=== PATIENT | female | born 2000 | race Caucasian/White ===

== ENCOUNTER 2023-06-17 17:27 | Emergency (ER) | payer OTHER, SELFPAY ==
[2023-06-17 17:44] VITALS: BP 122/72; PULSE 63; RESP 16; TEMP 36.6; O2SAT 100; BMI 27.5
--- NOTE | 2023-06-17 17:47 | DI.US.S_ITS ---
PROCEDURE: US OB <= 14 WEEKS FETUS INDICATIONS: BLEEDING, CRAMPING OUTSIDE/PRIOR DATING DATA: Last menstrual period (LMP): 03/12/2023. LMP-based estimated date of delivery (CAROLYN): 12/17/2023. TECHNIQUE: Real-time scanning was performed of the fetus and maternal pelvic organs, with image documentation. Endovaginal scanning was also performed to better visualize the fetus and maternal ovaries. COMPARISON: None. FINDINGS: No pole is identified. An intrauterine gestational sac is seen measuring 1 cm corresponding to a possible ultrasound age of 5 weeks and 5 days. A yolk sac is present. Adnexal structures within normal limits. IMPRESSION: of unknown viability. Intrauterine gestational sac with a yolk sac is present, without pole. Recommend follow-up imaging in 14 days or sooner and clinical/laboratory follow-up. Dictated by: Dayron Gallardo M.D. on 06/17/2023 at 19:28 Approved by: Dayron Gallardo M.D. on 06/17/2023 at 19:30
[2023-06-17 18:08] LABS: Add Manual Diff / Slide Review NO; Basophils Absolute Auto 0 /uL (0-100); Basophils Percent Auto 0.3 % (0-2); Eosinophils Absolute Auto 100 /uL (0-450); Eosinophils Percent Auto 1.6 % (2-4); Hematocrit 39.8 % (36-46); Hemoglobin 13.5 g/dL (12.0-16.0); Lymphocytes Absolute Auto 1700 /uL (1100-4500); Lymphocytes Percent Auto 21.3 % (25-40); Mean Corpuscular HGB Conc 33.8 % (30-36); Mean Corpuscular Hemoglobin 29.1 PG (26-34); Mean Corpuscular Volume 86.2 fL (80-100); Monocytes Absolute Auto 800 /uL (0-900); Monocytes Percent Auto 10.3 % (3-14); Neutrophils Absolute Auto 5300 /uL (1500-7000); Neutrophils Percent Auto 66.5 % (50-75); Platelet Count 297 X10^3/uL (150-400); Red Blood Cell Count 4.62 X10^6/uL (4.0-5.2); Red Cell Distribution Width 12.7 % (11.6-14.8); White Blood Cell Count 7.9 X10^3/uL (4.5-11.0)
[2023-06-17 18:19] LABS: Alanine Aminotransferase 20 IU/L (<35); Albumin 4.2 g/dL (3.5-5.0); Albumin Globulin Ratio 1.4 (1.0-2.8); Alkaline Phosphatase 43 U/L (38-126); Aspartate Aminotransferase 21 IU/L (14-36); BUN Creatinine Ratio 16.7 (6-22); Blood Urea Nitrogen 13 mg/dL (7-17); Calcium 8.6 mg/dL (8.4-10.2); Carbon Dioxide 27 mmol/L (22-32); Chloride 110 mmol/L (98-107); Estimated Glomerular Filt Rate > 60 mL/min (>60); Globulin 2.9 g/dL (1.7-4.1); Glucose 87 mg/dL (70-100); HEMOLYSIS < 15 (0-50); Potassium 3.8 mmol/L (3.4-5.1); Sodium 141 mmol/L (137-145); Total Protein 7.1 g/dL (6.3-8.2)
[2023-06-17 18:36] LABS: HCG Quantitative /Beta subunit 1710.5 mIU/mL
[2023-06-17 20:09] VITALS: PULSE 62; O2SAT 100
[2023-06-17 20:30] VITALS: PULSE 56; RESP 18; O2SAT 98
[2023-06-17 21:00] VITALS: PULSE 56; O2SAT 100
--- NOTE | 2023-06-17 21:25 | ED_ITS ---
HPI - General Chief complaint: OB/Uterine Contractions Stated complaint: prenant 13 wks bleeding and cramping Time Seen by Provider: 06/17/23 18:40 Source: patient Mode of arrival: Ambulatory History of Present Illness HPI Narrative: at approximately 13 weeks gestational age based on last menstrual. Presents for 1 day of lower abdominal bleeding and cramping. Patient states that she only recently took a positive test. When she tried to call OBGYN they did not have any available appointments and referred to the emergency department. She does not know her blood type. Related Data Allergies Allergy/AdvReac Type Severity Reaction Status Date / Time No Known Drug Allergies Allergy Verified 06/17/23 17:47 Review of Systems Review of Systems Narrative: Negative except as noted above Exam Initial Vital Signs Initial Vital Signs: Vital Signs Temperature 97.8 F 06/17/23 17:44 Pulse Rate 63 06/17/23 17:44 Respiratory Rate 16 06/17/23 17:44 Blood Pressure 122/72 06/17/23 17:44 Pulse Oximetry 100 06/17/23 17:44 Oxygen Delivery Method Room Air 06/17/23 17:44 Const: Awake, alert, no acute distress, nontoxic appearing Cardiac: regular rate, regular rhythm RESP: unlabored, clear bilaterally, no wheezing GI: Atraumatic, soft, nontender, nondistended, no rebound, no guarding MSK: Atraumatic, full range of motion, pulses equal Skin: Warm, Dry, intact, no rashes Neuro: AO x3, CN II-XII grossly intact, moves all extremities Course Orders Ordered: ED Orders 06/17/23 17:47 OB <= 14 weeks fetus Stat 06/17/23 18:00 Complete Blood Count AUTO DIFF Stat Comprehensive Metabolic Panel Stat HCG Quantitative /Beta subunit Stat Type and Screen Stat Vital Signs Vital signs: Vital Signs - 8 hr 06/17/23 20:30 06/17/23 21:00 Pulse Rate 56 L 56 L Respiratory Rate 18 Pulse Oximetry 98 100 MDM - OB/Uterine Contractions Differential Diagnosis Differential diagnosis: Likely pre-eclampsia, eclampsia and other Lab Data 06/17/23 18:00 06/17/23 18:00 Labs: Lab Results 06/17/23 Range/Units 18:00 WBC 7.9 (4.5-11.0) X10^3/uL RBC 4.62 (4.0-5.2) X10^6/uL Hgb 13.5 (12.0-16.0) g/dL Hct 39.8 (36-46) % MCV 86.2 (80-100) fL MCH 29.1 (26-34) PG MCHC 33.8 (30-36) % RDW 12.7 (11.6-14.8) % Plt Count 297 (150-400) X10^3/uL Neut % (Auto) 66.5 (50-75) % Lymph % (Auto) 21.3 L (25-40) % [place] % (Auto) 10.3 (3-14) % Eos % (Auto) 1.6 L (2-4) % Baso % (Auto) 0.3 (0-2) % Neut # (Auto) 5300 (7082-8187) /uL Lymph # (Auto) 1700 (0839-0496) /uL [place] # (Auto) 800 (0-900) /uL Eos # (Auto) 100 (0-450) /uL Baso # (Auto) 0 (0-100) /uL Sodium 141 (137-145) mmol/L Potassium 3.8 (3.4-5.1) mmol/L Chloride 110 H (98-107) mmol/L Carbon Dioxide 27 (22-32) mmol/L BUN 13 (7-17) mg/dL Creatinine 0.78 (0.52-1.04) mg/dL Estimated GFR > 60 (>60) mL/min BUN/Creatinine Ratio 16.7 (6-22) Glucose 87 (70-100) mg/dL Calcium 8.6 (8.4-10.2) mg/dL Total Bilirubin 1.0 (0.2-1.3) mg/dL AST 21 (14-36) IU/L ALT 20 (<35) IU/L Alkaline Phosphatase 43 (38-126) U/L Total Protein 7.1 (6.3-8.2) g/dL Albumin 4.2 (3.5-5.0) g/dL Globulin 2.9 (1.7-4.1) g/dL Albumin/Globulin Ratio 1.4 (1.0-2.8) HCG, Quant 1710.5 mIU/mL Blood Type A Positive Antibody Screen Negative Imaging Data US - OB: Radiologist's Impression: PROCEDURE: US OB <= 14 WEEKS FETUS INDICATIONS: BLEEDING, CRAMPING OUTSIDE/PRIOR DATING DATA: Last menstrual period (LMP): 03/12/2023. LMP-based estimated date of delivery (CAROLYN): 12/17/2023. TECHNIQUE: Real-time scanning was performed of the fetus and maternal pelvic organs, with image documentation. Endovaginal scanning was also performed to better visualize the fetus and maternal ovaries. COMPARISON: None. FINDINGS: No pole is identified. An intrauterine gestational sac is seen measuring 1 cm corresponding to a possible ultrasound age of 5 weeks and 5 days. A yolk sac is present. Adnexal structures within normal limits. IMPRESSION: of unknown viability. Intrauterine gestational sac with a yolk sac is present, without pole. Recommend follow-up imaging in 14 days or sooner and clinical/laboratory follow-up. Dictated by: Dayron Gallardo M.D. on 06/17/2023 at 19:28 Approved by: Dayron Gallardo M.D. on 06/17/2023 at 19:30 MDM Narrative Medical decision making narrative: Vaginal bleeding in patient. Patient has no previously established OBGYN care for this . She estimates 13 weeks based on her last menstrual period but only recently took a positive home test. Laboratory work is significant for a positive blood type. HCG quant 1710. Ultrasound reveals a of unknown viability. Despite a last menstrual period of 03/12/2023 yolk sac only measures approximately 5 weeks and 5 days. There is no pole and no visualized heartbeat. Patient and her partner advised of all lab and imaging findings. I counseled that at this moment in time it is quite possible that she was having a miscarriage but hCG quant level should be rechecked in 48-72 hours. Patient states she was not have an OBGYN or primary care doctor, she was counseled that she may return to the emergency department for a repeat lab draw and imaging. Recommended pelvic rest while bleeding until seen and cleared by OBGYN. Discharge Plan Departure Patient Disposition: Home Clinical Impression: Vaginal bleeding affecting early , Type A blood, Rh positive Instructions: DI for Threatened Activity Restrictions/Additional Instructions: The ultrasound today showed a yolk sac without a pole or heart rate. This early in the it is difficult to tell if this is an early or an impending miscarriage. Your hCG quantitative level today was 1710. Your blood type is A positive. It is extremely important that you follow up within 48 hours for an hCG rechecked to see what direction your hCG is trending. Follow up with OBGYN. Recommended pelvic rest until seen by OBGYN. Referrals: Rae Yoo MD [Physician] - Miscellaneous,MD Sulaiman [Primary Care Provider] - Stand Alone Forms: Patient Portal/API
== END 2023-06-17 21:23 | disposition home or self-care (01) ==
PROVIDERS: Emergency Medicine; Emergency Provider Emergency Medicine
DX: O46.91 Antepartum hemorrhage, unspecified, first trimester (principal); Z3A.13 13 weeks gestation of pregnancy; Z67.10 Type A blood, Rh positive
CPT/HCPCS: 76801; 76817; 80053; 84702; 85025; 86850; 86900; 86901; 99281; 99284

== ENCOUNTER 2023-06-20 11:29 | Emergency (ER) | payer OTHER, SELFPAY ==
[2023-06-20] VITALS (9 sets, daily range): BP systolic 116–130; BP diastolic 66–91; PULSE 56–81; RESP 18–20; TEMP 36.8; O2SAT 98–100; BMI 27.5
--- NOTE | 2023-06-20 12:00 | DI.US.S_ITS ---
PROCEDURE: US PELVIC COMPLETE INDICATIONS: BLEEDING; 6 WEEKS TECHNIQUE: Real-time scanning was performed of the pelvic organs, with image documentation. Additional endovaginal scanning was necessary due to incomplete visualization of the adnexal and endometrial structures by transabdominal scanning. COMPARISON: [facility], US, US OB <= 14 WEEKS FETUS, 06/17/2023, 18:54. FINDINGS: Uterus: Uterus is anteverted and normal in size at 8.5 x 3.8 x 4.4 cm. The myometrium is homogeneous. The endometrium measures 12 mm combined thickness. No findings of an intrauterine can be seen. No findings of retained products of conception. No abnormal vascularity can be seen along the endometrial stripe. Ovaries: The right ovary measures 3 x 3 x 2 cm, with a calculated ovarian volume of 9.7 cc. The left ovary measures 2 x 1.2 x 2.8 cm, with a calculated ovarian volume of 3.4 cc. The ovaries have a normal sonographic appearance. Less than 12 follicles can be seen in each ovary. No adnexal masses are seen. Other: No pathologic free abdominal or pelvic fluid. IMPRESSION: Completed spontaneous miscarriage, without findings of retained products of conception. We strive to produce accurate, complete, and clear reports of imaging services. To assist us in improving patient care, this report was composed using standard report templates and voice recognition software. Therefore, it may contain abnormal punctuation, insertions and/or omissions. Occasional wrong-word or sound-alike substitutions may occur. Though we review the report and make efforts to correct it, we do recommend that the report be read carefully in proper context to recognize any text inaccuracies. Dictated by: Simon Chen M.D. on 06/20/2023 at 14:04 Approved by: Simon Chen M.D. on 06/20/2023 at 14:05
--- NOTE | 2023-06-20 12:28 | ED.GENADULT ---
HPI - General Adult General Chief complaint: OB/Uterine Contractions Stated complaint: poss miscarriage t-2 heavy bleeding poss 5 weeks Time Seen by Provider: 06/20/23 11:59 Source: patient Mode of arrival: Ambulatory Limitations: no limitations History of Present Illness HPI narrative: Patient is a 22-year-old female. . Was seen here in the emergency department last week for vaginal bleeding. Was told that she potentially was at the beginning stages of a miscarriage. She is Rh positive. After arriving home after that visit she started to have very heavy vaginal bleeding and cramping. She thinks she did passed tissue. She has been bleeding a couple pads an hour since then. Denies any fevers. She does have history of anemia. She stated that it was estimated that she was approximately 5 weeks along Related Data Allergies Allergy/AdvReac Type Severity Reaction Status Date / Time No Known Drug Allergies Allergy Verified 06/17/23 17:47 Review of Systems Constitutional Constitutional: Reports system reviewed and no additional complaints, except as documented Cardiovascular Cardiovascular: Reports system reviewed and no additional complaints, except as documented Respiratory Respiratory: Reports system reviewed and no additional complaints, except as documented Gastrointestinal Gastrointestinal: Reports system reviewed and no additional complaints, except as documented Patient History Social History Smoking Status: Former smoker Smoking Status: Former smoker Substance Use Type: does not use Exam Initial Vital Signs Initial Vital Signs: Vital Signs Pulse Rate 67 06/20/23 11:59 Blood Pressure 126/66 06/20/23 11:59 Pulse Oximetry 98 06/20/23 11:59 Const General: cooperative, comfortable and No ill appearing [facility] Head: normal to inspection and normocephalic Resp Effort & Inspection: normal respiratory effort Cardio Rate: regular rate GI Inspection: non-distended Neuro General: patient alert, patient awake and moves all extremities Extrem General: capillary refill normal Course Orders Ordered: ED Orders 06/20/23 12:00 US pelvic complete Stat 06/20/23 12:50 Basic Metabolic Panel Stat Complete Blood Count AUTO DIFF Stat HCG Quantitative /Beta subunit Stat Vital Signs Vital signs: Vital Signs - 8 hr 06/20/23 11:59 06/20/23 11:59 06/20/23 12:00 Temperature Pulse Rate 67 81 Respiratory Rate Blood Pressure 126/66 Pulse Oximetry 98 98 Oxygen Delivery Method 06/20/23 12:01 06/20/23 12:01 06/20/23 12:05 Temperature 98.2 F Pulse Rate 71 57 L Respiratory Rate 18 Blood Pressure 130/91 H 126/66 Pulse Oximetry 100 100 Oxygen Delivery Method Room Air Medical Decision Making Lab Data Lab results reviewed: Yes I reviewed the patient's lab results. 06/20/23 12:50 06/20/23 12:50 Labs: Lab Results 06/20/23 Range/Units 12:50 WBC 5.7 (4.5-11.0) X10^3/uL RBC 4.11 (4.0-5.2) X10^6/uL Hgb 12.5 (12.0-16.0) g/dL Hct 36.0 (36-46) % MCV 87.6 (80-100) fL MCH 30.4 (26-34) PG MCHC 34.7 (30-36) % RDW 12.9 (11.6-14.8) % Plt Count 268 (150-400) X10^3/uL Neut % (Auto) 66.3 (50-75) % Lymph % (Auto) 24.8 L (25-40) % [place] % (Auto) 7.1 (3-14) % Eos % (Auto) 0.9 L (2-4) % Baso % (Auto) 0.9 (0-2) % Neut # (Auto) 3800 (5124-9736) /uL Lymph # (Auto) 1400 (8041-7445) /uL [place] # (Auto) 400 (0-900) /uL Eos # (Auto) 100 (0-450) /uL Baso # (Auto) 0 (0-100) /uL Sodium 141 (137-145) mmol/L Potassium 4.6 (3.4-5.1) mmol/L Chloride 108 H (98-107) mmol/L Carbon Dioxide 29 (22-32) mmol/L BUN 25 H (7-17) mg/dL Creatinine 0.82 (0.52-1.04) mg/dL Estimated GFR > 60 (>60) mL/min BUN/Creatinine Ratio 30.5 H (6-22) Glucose 94 (70-100) mg/dL Calcium 9.2 (8.4-10.2) mg/dL HCG, Quant 226.4 mIU/mL Imaging Data US - DISTRICT SUPERINTENDENT: Radiologist's Impression: ROCEDURE: US PELVIC COMPLETE INDICATIONS: BLEEDING; 6 WEEKS TECHNIQUE: Real-time scanning was performed of the pelvic organs, with image documentation. Additional endovaginal scanning was necessary due to incomplete visualization of the adnexal and endometrial structures by transabdominal scanning. COMPARISON: [facility], US, US OB <= 14 WEEKS FETUS, 06/17/2023, 18:54. FINDINGS: Uterus: Uterus is anteverted and normal in size at 8.5 x 3.8 x 4.4 cm. The myometrium is homogeneous. The endometrium measures 12 mm combined thickness. No findings of an intrauterine can be seen. No findings of retained products of conception. No abnormal vascularity can be seen along the endometrial stripe. Ovaries: The right ovary measures 3 x 3 x 2 cm, with a calculated ovarian volume of 9.7 cc. The left ovary measures 2 x 1.2 x 2.8 cm, with a calculated ovarian volume of 3.4 cc. The ovaries have a normal sonographic appearance. Less than 12 follicles can be seen in each ovary. No adnexal masses are seen. Other: No pathologic free abdominal or pelvic fluid. IMPRESSION: Completed spontaneous miscarriage, without findings of retained products of conception. MDM Narrative Medical decision making narrative: Patient is Rh positive. Beta-hCG is declining appropriately. Ultrasound today shows no retained products of conception. Blood counts today are unremarkable vital signs unremarkable. Discussed all this with the patient. She already has a ultrasound scheduled for later this week. We discussed return precautions. She expressed understanding and agreement. Discharge Plan Departure Patient Disposition: Home Clinical Impression: Miscarriage Instructions: DI for Miscarriage Activity Restrictions/Additional Instructions: Recommend that you keep your scheduled appointment for the ultrasound on of this week. I would suspect that the symptoms that brought you in today should improve over the next couple days. Return to the emergency department for new symptoms. Referrals: Miscellaneous,DoctorMD [Primary Care Provider] - Stand Alone Forms: Patient Portal/API
[2023-06-20 13:00] LABS: Add Manual Diff / Slide Review NO; Basophils Absolute Auto 0 /uL (0-100); Basophils Percent Auto 0.9 % (0-2); Eosinophils Absolute Auto 100 /uL (0-450); Eosinophils Percent Auto 0.9 % (2-4); Hemoglobin 12.5 g/dL (12.0-16.0); Lymphocytes Absolute Auto 1400 /uL (1100-4500); Lymphocytes Percent Auto 24.8 % (25-40); Mean Corpuscular HGB Conc 34.7 % (30-36); Mean Corpuscular Hemoglobin 30.4 PG (26-34); Mean Corpuscular Volume 87.6 fL (80-100); Monocytes Absolute Auto 400 /uL (0-900); Monocytes Percent Auto 7.1 % (3-14); Neutrophils Absolute Auto 3800 /uL (1500-7000); Neutrophils Percent Auto 66.3 % (50-75); Platelet Count 268 X10^3/uL (150-400); Red Blood Cell Count 4.11 X10^6/uL (4.0-5.2); Red Cell Distribution Width 12.9 % (11.6-14.8); White Blood Cell Count 5.7 X10^3/uL (4.5-11.0)
[2023-06-20 13:09] LABS: BUN Creatinine Ratio 30.5 (6-22); Blood Urea Nitrogen 25 mg/dL (7-17); Calcium 9.2 mg/dL (8.4-10.2); Carbon Dioxide 29 mmol/L (22-32); Chloride 108 mmol/L (98-107); Estimated Glomerular Filt Rate > 60 mL/min (>60); Glucose 94 mg/dL (70-100); HEMOLYSIS < 15 (0-50); Potassium 4.6 mmol/L (3.4-5.1); Sodium 141 mmol/L (137-145)
[2023-06-20 13:26] LABS: HCG Quantitative /Beta subunit 226.4 mIU/mL
== END 2023-06-20 15:48 | disposition home or self-care (01) ==
PROVIDERS: Emergency Provider Emergency Medicine
DX: O03.9 Complete or unspecified spontaneous abortion without complication (principal)
CPT/HCPCS: 36415; 76830; 76856; 80048; 84702; 85025; 99281; 99282

== ENCOUNTER 2024-02-25 17:15 | Emergency (ER) | payer OTHER, SELFPAY ==
[2024-02-25] VITALS (9 sets, daily range): BP systolic 119–136; BP diastolic 60–92; PULSE 40–50; RESP 4–30; TEMP 36.7; O2SAT 99–100; BMI 27.7
--- NOTE | 2024-02-25 17:37 | EKG_ITS ---
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
--- NOTE | 2024-02-25 18:42 | ED_ITS ---
HPI - Syncope General Chief Complaint: Syncope Stated Complaint: Syncope, Hit Head, L Knee Time Seen by Provider: 02/25/24 17:52 Source: patient Mode of arrival: Ambulatory History of Present Illness HPI narrative: 23-year-old female with reported history of anemia presents by private vehicle for syncopal episode that occurred approximately 10:30 a.m. today. Patient states that this morning she felt a migraine coming on. She [place] a tunneling in her vision and passed out while in a seated position. Reports hitting the right side of her head on the corner of a table and injuring her left knee. When she told her boyfriend about the episode this afternoon he encouraged her to seek evaluation in the emergency department. Patient reports low-grade headache, soreness in her left knee, but otherwise denies complaints at this time. Related Data Previous Rx's Medication Instructions Recorded cyclobenzaprine 5 mg tablet 5 mg PO TID PRN muscle spasm #20 10/19/23 tabs Allergies Allergy/AdvReac Type Severity Reaction Status Date / Time No Known Drug Allergies Allergy Verified 02/25/24 17:29 Patient History Social History Smoking Status: Former smoker Smoking Status: Former smoker Substance Use Type: does not use Exam Initial Vital Signs Initial Vital Signs: Vital Signs Temperature 98.0 F 02/25/24 17:23 Pulse Rate 50 L 02/25/24 17:23 Respiratory Rate 16 02/25/24 17:23 Blood Pressure 135/76 02/25/24 17:23 Pulse Oximetry 100 02/25/24 17:23 Oxygen Delivery Method Room Air 02/25/24 17:23 Const: Awake, alert, no acute distress, nontoxic appearing Cardiac: Bradycardia, regular rhythm RESP: unlabored, clear bilaterally, no wheezing MSK: Atraumatic, full range of motion, pulses equal Skin: Warm, Dry, intact, no rashes Neuro: AO x3, CN II-XII grossly intact, moves all extremities Course Orders Ordered: ED Orders 02/25/24 19:03 CT head/brain wo con Stat Chest [XR chest 1V] Stat 02/25/24 19:18 CBC Auto Diff [Complete Blood Count AUTO DIFF] Stat CMP [Comprehensive Metabolic Panel] Stat TSH [Thyroid Stimulating Hormone] Stat Troponin & CK Cardiac Panel Stat Discontinued Medications Sodium Chloride (Normal Saline 0.9%) 1,000 mls @ 1,000 mls/hr IV BOLUS ONE Stop: 02/25/24 20:02 Last Infusion: 02/25/24 20:40 Dose: Infused Documented By: MARIA DOLORES Admin: 02/25/24 19:20 Dose: 1,000 mls/hr Documented By: MARIA DOLORES Vital Signs Vital signs: Vital Signs - 8 hr 02/25/24 18:58 02/25/24 19:00 02/25/24 19:14 Pulse Rate 46 L 42 L 48 L Respiratory Rate 4 L 12 13 Blood Pressure 120/77 123/92 H 124/87 Pulse Oximetry 99 100 Oxygen Delivery Method 02/25/24 19:30 02/25/24 20:01 02/25/24 20:15 Pulse Rate 41 L 40 L 41 L Respiratory Rate 30 H 21 23 Blood Pressure 130/83 136/60 119/61 Pulse Oximetry 99 99 100 Oxygen Delivery Method Room Air 02/25/24 20:30 02/25/24 21:01 Pulse Rate 42 L 41 L Respiratory Rate 29 H 22 Blood Pressure 123/76 120/62 Pulse Oximetry 99 100 Oxygen Delivery Method Room Air MDM - Syncope Differential Diagnosis Differential diagnosis: Likely syncope due to orthostatic hypotension, vasovagal syncope and dehydration Lab Data 02/25/24 19:18 02/25/24 19:18 Labs: Lab Results 02/25/24 Range/Units 19:18 WBC 9.9 (4.5-11.0) X10^3/uL RBC 4.61 (4.0-5.2) X10^6/uL Hgb 13.9 (12.0-16.0) g/dL Hct 40.6 (36-46) % MCV 88.1 (80-100) fL MCH 30.1 (26-34) PG MCHC 34.2 (30-36) % RDW 12.7 (11.6-14.8) % Plt Count 321 (150-400) X10^3/uL Neut % (Auto) 65.9 (50-75) % Lymph % (Auto) 24.3 L (25-40) % [place] % (Auto) 7.2 (3-14) % Eos % (Auto) 1.6 L (2-4) % Baso % (Auto) 1.0 (0-2) % Neut # (Auto) 6500 (3133-2646) /uL Lymph # (Auto) 2400 (3764-7875) /uL [place] # (Auto) 700 (0-900) /uL Eos # (Auto) 200 (0-450) /uL Baso # (Auto) 100 (0-100) /uL Sodium 141 (137-145) mmol/L Potassium 4.1 (3.4-5.1) mmol/L Chloride 107 (98-107) mmol/L Carbon Dioxide 25 (22-32) mmol/L BUN 15 (7-17) mg/dL Creatinine 0.94 (0.52-1.04) mg/dL Estimated GFR > 60 (>60) mL/min BUN/Creatinine Ratio 16.0 (6-22) Glucose 93 (70-100) mg/dL Calcium 9.1 (8.4-10.2) mg/dL Total Bilirubin 2.7 H (0.2-1.3) mg/dL AST 30 (14-36) IU/L ALT 24 (<35) IU/L Alkaline Phosphatase 42 (38-126) U/L Total Creatine Kinase 114 (30-135) U/L Troponin I < 0.012 (0.01-0.034) ng/mL Total Protein 7.5 (6.3-8.2) g/dL Albumin 4.7 (3.5-5.0) g/dL Globulin 2.8 (1.7-4.1) g/dL Albumin/Globulin Ratio 1.7 (1.0-2.8) TSH 2.47 (0.47-4.68) uIU/mL Point of Care Testing Test Results Negative Urine Dip Bedside Urine Glucose Negative Bedside Urine Bilirubin - Negative Bedside Urine Ketone - Negative Urine Specific [place] 1.020 Bedside Urine Occult Blood - Negative Bedside Urine pH 6.0 Bedside Urine Protein - Negative Bedside Urine Urobilinogen - Negative Bedside Urine Nitrite - Negative Bedside Urine Leukocytes - Negative Esterase ECG Data Attestation: I personally reviewed and interpreted this ECG as follows: Interpretation: Sinus bradycardia at 48 beats per minute. Normal MS. No ST-T wave changes MDM Narrative Medical decision making narrative: Well-appearing patient was syncopal episode earlier this morning. Reported history of anemia. Patient reports a migraine preceded her symptoms today. Currently alert, oriented, no focal deficits, ambulatory without assistance and in no acute distress. Noted to be bradycardic, particularly while sleeping, however patient is denying symptoms at this time. Laboratory work is reviewed. There is a nonspecific increase in bilirubin from prior, however other liver enzymes are within normal limits. CT brain negative for acute traumatic findings. Chest x-ray also negative for acute findings. Patient did have continuous bradycardia while in the ED room, but never experienced any symptoms and due to age this is likely a chronic finding. Patient does wear a smart watch but does not know her resting heart rate and says that her smart watch his not set to monitor her heart rate. Patient was informed of all lab and imaging findings. She was informed of her elevated bilirubin level and recommended following up with the primary care doctor to make sure that this trends back to normal. ED return precautions discussed. Discharge Plan Departure Patient Disposition: Home Clinical Impression: Syncope Instructions: DI for Syncope in Adults (Fainting) Activity Restrictions/Additional Instructions: Your laboratory work today shows no anemia, but you do have a mild elevation in your bilirubin, which is a liver enzymes. This level can sometimes rise under stress. I recommend following up with your primary care doctor to make sure that this level goes back down to normal. You did have a low heart rate while in the emergency department today, especially when sleeping. This can be normal in someone your age, but I recommend measuring your pulse with a smart watch to trend your pulse and make sure that no irregularities happened. Prescriptions: No Action cyclobenzaprine 5 mg tablet 5 mg PO TID PRN (Reason: muscle spasm) Qty: 20 0RF Referrals: Miscellaneous,DoctorMD [Primary Care Provider] - Stand Alone Forms: Patient Portal/API/Survey
--- NOTE | 2024-02-25 19:03 | DI.RAD.S_ITS ---
PROCEDURE: XR CHEST 1V INDICATIONS: SYNCOPE TECHNIQUE: One view of the chest was acquired. COMPARISON: None. FINDINGS: Surgical changes and devices: None. Lungs and pleura: Lungs are clear. No pleural effusions or pneumothorax. Mediastinum: Mediastinal contours appear normal. Heart size is normal. Bones and chest wall: No suspicious bony lesions. Overlying soft tissues appear unremarkable. IMPRESSION: No acute cardiopulmonary pathology. Dictated by: Hector Mosqueda M.D. on 02/25/2024 at 19:22 Approved by: Hector Mosqueda M.D. on 02/25/2024 at 19:22
--- NOTE | 2024-02-25 19:03 | DI.CT.S_ITS ---
PROCEDURE: CT HEAD/BRAIN WO CON INDICATIONS: CASTILLO WITH SUBSEQUENT SYNCOPE TECHNIQUE: Noncontrast 4.5 mm thick angled axial sections acquired from the foramen magnum to the vertex, with coronal and sagittal reformats. For radiation dose reduction, the following was used: automated exposure control, adjustment of mA and/or kV according to patient size. COMPARISON: None. FINDINGS: Image quality: Diagnostic. CSF spaces: Basal cisterns are patent. No extra-axial fluid collections. Ventricles are normal in size and shape. Brain: No midline shift. No intracranial masses or hemorrhage. [place]-white matter interface is normal. Skull and face: Calvarium and visualized facial bones are intact, without suspicious lesions. Sinuses: Visualized sinuses and mastoids are clear. IMPRESSION: No acute intracranial pathology. Dictated by: Hector Mosqueda M.D. on 02/25/2024 at 19:23 Approved by: Hector Mosqueda M.D. on 02/25/2024 at 19:23
[2024-02-25] MEDS: SODIUM CHLORIDE 0.9% 1,000 ML 1000 ML IV (19:20)
[2024-02-25 19:28] LABS: Add Manual Diff / Slide Review NO; Basophils Absolute Auto 100 /uL (0-100); Eosinophils Absolute Auto 200 /uL (0-450); Eosinophils Percent Auto 1.6 % (2-4); Hematocrit 40.6 % (36-46); Hemoglobin 13.9 g/dL (12.0-16.0); Lymphocytes Absolute Auto 2400 /uL (1100-4500); Lymphocytes Percent Auto 24.3 % (25-40); Mean Corpuscular HGB Conc 34.2 % (30-36); Mean Corpuscular Hemoglobin 30.1 PG (26-34); Mean Corpuscular Volume 88.1 fL (80-100); Monocytes Absolute Auto 700 /uL (0-900); Monocytes Percent Auto 7.2 % (3-14); Neutrophils Absolute Auto 6500 /uL (1500-7000); Neutrophils Percent Auto 65.9 % (50-75); Platelet Count 321 X10^3/uL (150-400); Red Blood Cell Count 4.61 X10^6/uL (4.0-5.2); Red Cell Distribution Width 12.7 % (11.6-14.8); White Blood Cell Count 9.9 X10^3/uL (4.5-11.0)
[2024-02-25 19:45] LABS: Alanine Aminotransferase 24 IU/L (<35); Albumin 4.7 g/dL (3.5-5.0); Albumin Globulin Ratio 1.7 (1.0-2.8); Alkaline Phosphatase 42 U/L (38-126); Aspartate Aminotransferase 30 IU/L (14-36); Bilirubin Total 2.7 mg/dL (0.2-1.3); Blood Urea Nitrogen 15 mg/dL (7-17); Calcium 9.1 mg/dL (8.4-10.2); Carbon Dioxide 25 mmol/L (22-32); Chloride 107 mmol/L (98-107); Creatine Kinase 114 U/L (30-135); Estimated Glomerular Filt Rate > 60 mL/min (>60); Globulin 2.8 g/dL (1.7-4.1); Glucose 93 mg/dL (70-100); HEMOLYSIS < 15 (0-50); Potassium 4.1 mmol/L (3.4-5.1); Sodium 141 mmol/L (137-145); Total Protein 7.5 g/dL (6.3-8.2)
[2024-02-25 19:56] LABS: Troponin I < 0.012 ng/mL (0.01-0.034)
[2024-02-25 20:33] LABS: Thyroid Stimulating Hormone 2.47 uIU/mL (0.47-4.68)
== END 2024-02-25 21:10 | disposition home or self-care (01) ==
PROVIDERS: Emergency Provider Emergency Medicine
DX: R55 Syncope and collapse (principal); S09.90XA Unspecified injury of head, initial encounter; S89.92XA Unspecified injury of left lower leg, initial encounter; R00.1 Bradycardia, unspecified; I49.8 Other specified cardiac arrhythmias
CPT/HCPCS: 36415; 70450; 71045; 80053; 81003; 81025; 82550; 84443; 84484; 85025; 93005; 96360; 99284; 99285